=== PATIENT | female | born 1985 | race Caucasian/White ===

== ENCOUNTER 2019-01-13 21:50 | Emergency (ER) | payer BC ==
[~2019-01-13] VITALS: Ht 157.5 cm; Wt 52.2 kg
[2019-01-13 22:14] LABS: BILIRUBIN,URINE NEGATIVE (NEG); CLARITY,URINE CLEAR; COLOR,URINE YELLOW; NITRITE,URINE NEGATIVE (NEG); PROTEIN,URINE NEGATIVE (NEG-TRACE); UROBILINOGEN,URINE 0.2 mg/dL (0.2 mg/dL)
[2019-01-13 22:21] LABS: AMPHETAMINE/METHAMPHETAMINE NEG (NEG); BARBITURATES NEG (NEG); BENZODIAZEPINES NEG (NEG); CANNABINOIDS NEG (NEG); COCAINE NEG (NEG); METHADONE NEG (NEG); OPIATES NEG (NEG); PHENCYCLIDINE NEG (NEG)
[2019-01-13 22:25] LABS: BACTERIA,URINE MANY /HPF (0-FEW); RBC,URINE 0 /HPF (0-2); SQUAMOUS EPITHELIAL CELL,UR MOD /LPF
[2019-01-13] MEDS ORDERED: LORazepam 0.5 MG TABLET PO ONE (23:00)
[2019-01-13] MEDS ORDERED: ORPHENADRINE CITRATE 60 MG/2 ML VIAL. IM ONE (23:00)
[2019-01-13] MEDS ORDERED: KETOROLAC 60 MG/2 ML VIAL. IM ONE (23:00)
[2019-01-13] MEDS ORDERED: CLON0.5T11 PO (23:48)
--- NOTE | 2019-01-13 23:48 | PHYS DOC ---
Past Medical History Past Medical History: Depression Past Surgical History: No Surgical History Alcohol Use: Heavy Drug Use: None Adult General Chief Complaint Chief Complaint: ANXIETY/PANIC ATTACK HPI HPI Patient is a 33-year-old female who presents with complaint of severe panic attack indicating that her fianc had just committed suicide 2 weeks ago. She indicates that symptoms have been present for the last few hours and states that her whole body is tense and now she hurts all over. She states that she is not able to calm herself down. Patient states that she does not have history of panic attacks but nose that that is what it has to be. She denies any actual chest pain. She does indicate that her back and legs and arms hurt however. She denies any thoughts of self-harm or harming others.[] Review of Systems Review of Systems Constitutional: Denies fever or chills [] Respiratory: Denies cough or shortness of breath [] Cardiovascular: No additional information not addressed in HPI [] GI: Denies abdominal pain, nausea, vomiting or diarrhea [] Musculoskeletal: [place] of back and diffuse muscle pain [] Integument: Denies rash or skin lesions [] Neurologic: Denies headache, focal weakness or sensory changes [] All other systems were reviewed and found to be within normal limits, except as documented in this note. Current Medications Current Medications Current Medications Medications (Trade) Dose Ordered Sig/Sergio Start Time Stop Time Status Last Admin Dose Admin Ketorolac Tromethamine (Toradol Im) 60 mg 1X ONCE 01/13/19 23:00 01/13/19 23:01 DC 01/13/19 22:46 60 MG Lorazepam (Ativan) 1 mg 1X ONCE 01/13/19 23:00 01/13/19 23:01 DC 01/13/19 22:45 1 MG Orphenadrine Citrate (Norflex) 60 mg 1X ONCE 01/13/19 23:00 01/13/19 23:01 DC 01/13/19 22:46 60 MG Allergies Allergies Allergies Coded Allergies Type Severity Reaction Last Updated Verified trimethoprim Allergy Severe MOUTH SWELLING 01/13/19 Yes Physical Exam Physical Exam Constitutional: Well developed, well nourished, in moderate to severe anxiety. [] Neck: Normal range of motion, no tenderness, supple, no stridor. [] Cardiovascular:Heart rate regular rhythm, no murmur [] Lungs & Thorax: Bilateral breath sounds clear to auscultation [] Abdomen: Bowel sounds normal, soft. [] Skin: Warm, dry, no erythema, no rash. [] Back: No tenderness, no CVA tenderness. [] Extremities: No tenderness, no cyanosis, no clubbing, ROM intact. [] Neurologic: Alert and oriented X 3, no focal deficits noted. [] Psychologic: Patient nearly incapacitated from anxiety, mood pressed. [] Current Patient Data Vital Signs Vital Signs Date Time Temp Pulse Resp B/P (MAP) Pulse Ox O2 Delivery O2 Flow Rate FiO2 01/13/19 23:57 73 20 109/66 (80) 98 Room Air 01/13/19 22:00 98.1 98.1 Lab Values Laboratory Tests Test 01/13/19 21:57 01/13/19 21:59 Urine Color Yellow Urine Clarity Clear Urine pH 7.0 Urine Specific Delta 1.010 Urine Protein Negative mg/dL (NEG-TRACE) Urine Glucose (UA) Negative mg/dL (NEG) Urine Ketones (Stick) 15 mg/dL (NEG) Urine Blood Negative (NEG) Urine Nitrite Negative (NEG) Urine Bilirubin Negative (NEG) Urine Urobilinogen Dipstick 0.2 mg/dL (0.2 mg/dL) Urine Leukocyte Esterase Small (NEG) Urine RBC 0 /HPF (0-2) Urine WBC 5-10 /HPF (0-4) Urine Squamous Epithelial Cells Mod /LPF Urine Bacteria Many /HPF (0-FEW) Urine Opiates Screen Neg (NEG) Urine Methadone Screen Neg (NEG) Urine Barbiturates Neg (NEG) Urine Phencyclidine Screen Neg (NEG) Urine Amphetamine/Methamphetamine Neg (NEG) Urine Benzodiazepines Screen Neg (NEG) Urine Cocaine Screen Neg (NEG) Urine Cannabinoids Screen Neg (NEG) Urine Ethyl Alcohol Neg (NEG) POC Urine HCG, Qualitative Hcg negative (Negative) EKG EKG [] Radiology/Procedures Radiology/Procedures [] Course & Med Decision Making Course & Med Decision Making Pertinent Labs and Imaging studies reviewed. (See chart for details) [] Dragon Disclaimer Dragon Disclaimer This electronic medical record was generated, in whole or in part, using a voice recognition dictation system. Departure Departure Impression: Primary Impression: Panic attack due to exceptional stress Disposition: 01 HOME, SELF-CARE Condition: STABLE Referrals: NO PCP (PCP) Patient Instructions: Anxiety and Panic Attacks Scripts Clonazepam (CLONAZEPAM) 0.5 Mg Tablet 1 TAB PO BID PRN for ANXIETY, #14 TAB Prov: DAVE DONATO Jr., DO 01/13/19 DAVE DONATO Jr., DO Jan 13, 2019 23:48
[2019-01-13 23:57] VITALS: BP 109/66
== END 2019-01-13 23:57 | disposition home or self-care (01) ==
LOC: ER 21:50
DX: F41.0 Panic disorder [episodic paroxysmal anxiety] (principal); F43.0 Acute stress reaction; F32.9 Major depressive disorder, single episode, unspecified; Z88.1 Allergy status to other antibiotic agents
CPT/HCPCS: 80307; 81001; 81025; 87086; 96372; 99284; J1885; J2360